=== PATIENT | male | born 1940 | race Caucasian/White ===

== ENCOUNTER 2021-11-09 13:49 | Inpatient (IN) | payer MEDICARE, OTHER ==
[~2021-11-09] VITALS: Ht 167.6 cm; Wt 88.6 kg
[2021-11-09 15:12] LABS: HEMOGLOBIN 11.6 gm/dl (14.0-17.5); RED BLOOD COUNT 3.67 M/UL (4.20-5.50)
[2021-11-09] MEDS ORDERED: TRAZODONE HCL50 MG PO (16:19)
[2021-11-09] MEDS ORDERED: LORAZEPAM0.5 MG PO (16:19)
[2021-11-09] MEDS ORDERED: CARVEDILOL25 MG PO (16:20)
[2021-11-09] MEDS ORDERED: BUMETANIDE2 MG PO (16:20)
[2021-11-09] MEDS ORDERED: HYDRALAZINE HCL50 MG PO (16:21)
[2021-11-09] MEDS ORDERED: PROAIR HFA8.5 GM INH (16:21)
[2021-11-09] MEDS ORDERED: AVIDOXY100 MG PO (16:22)
[2021-11-09] MEDS ORDERED: NITROGLYCERIN0.4 MG SL (16:22)
[2021-11-09] MEDS ORDERED: ELIQUIS 2.5 MG2.5 MG PO (16:23)
[2021-11-09] MEDS ORDERED: SEVELAMER HCL800 MG PO (18:37)
[2021-11-09] MEDS ORDERED: MODAFINIL200 MG PO (18:38)
[2021-11-10 03:56] LABS: HEMOGLOBIN 10.9 gm/dl (14.0-17.5); RED BLOOD COUNT 3.47 M/UL (4.20-5.50)
[2021-11-10 04:00] LABS: WHITE BLOOD COUNT 6.7 K/UL (4.5-11.0)
[2021-11-10] MEDS ORDERED: MIRCERA INJ (09:44)
--- NOTE | 2021-11-12 01:57 | NUR ---
PT REFUSES LABS STATES NEED TO DO LATER IN THE MORNING
[2021-11-12 09:30] LABS: HEMOGLOBIN 11.5 gm/dl (14.0-17.5); RED BLOOD COUNT 3.68 M/UL (4.20-5.50)
[2021-11-12 09:38] LABS: WHITE BLOOD COUNT 9.4 K/UL (4.5-11.0)
[2021-11-13 02:05] LABS: HEMOGLOBIN 11.5 gm/dl (14.0-17.5); RED BLOOD COUNT 3.68 M/UL (4.20-5.50); WHITE BLOOD COUNT 9.3 K/UL (4.5-11.0)
--- NOTE | 2021-11-13 05:41 | NUR ---
PT STATES HE IS TOO WEAK TO LIFT HIS HEAD TO PLACE PILLOW UNDER HIS HEAD, STATES HE WANTS TO GET UP AND WALK TO BATHROOM, EDUCATED PATIENT ON FALL RISK AND THAT IS HE IS THAT WEAK WE CAN PUT HIM ON BEDPAIN, PATIENT REQUESTED BARIATRIC PHYSICIAN, HOUSE @ BEDROOM, PT STATES HE HAS BEEN GETTING UP AND WALKING DURING THE DAY, BARIATRIC PHYSICIAN EDUCATED PATIENT, PATIENT INSISTS ON GETTING UP AND STATES HE WILL DO A BEDSIDE COMMODE, BARIATRIC PHYSICIAN ADVISED TO GET PATIENT UP TO BEDSIDE COMMODE
[2021-11-14 03:43] LABS: HEMOGLOBIN 10.9 gm/dl (14.0-17.5); RED BLOOD COUNT 3.5 M/UL (4.20-5.50); WHITE BLOOD COUNT 7.8 K/UL (4.5-11.0)
[2021-11-15 03:19] LABS: HEMOGLOBIN 10.9 gm/dl (14.0-17.5); RED BLOOD COUNT 3.49 M/UL (4.20-5.50)
[2021-11-15 03:28] LABS: WHITE BLOOD COUNT 9.9 K/UL (4.5-11.0)
[2021-11-15] MEDS ORDERED: ATORVASTATIN CA20 MG PO (16:05)
[2021-11-15] MEDS ORDERED: OMNICEF 300 MG300 MG PO (16:05)
[2021-11-15] MEDS ORDERED: POLYETHYLENE GL17 GM PO (16:05)
[2021-11-15] MEDS ORDERED: NIFEDIPINE ER30 M1 PO (16:05)
[2021-11-15] MEDS ORDERED: HYDRALAZINE HCL50 MG PO (16:05)
[2021-11-15] MEDS ORDERED: ASPIRIN EC81 MG PO (16:05)
[2021-11-15] MEDS ORDERED: PROTONIX 40 MG40 M1 PO (16:05)
[2021-11-15] MEDS ORDERED: BUDESONIDE0.5 MG/2 M NEB (16:05)
[2021-11-15] MEDS ORDERED: BENZONATATE100 MG PO (16:05)
[2021-11-15] MEDS ORDERED: HUMIBID LA TAB600 MG PO (16:05)
[2021-11-15] MEDS ORDERED: ISOSORBIDE MONO60 MG PO (16:05)
[2021-11-15] MEDS ORDERED: BROVANA15 MCG/2 M NEB (16:05)
--- NOTE | 2021-11-15 16:34 | NUR ---
ATTEMPTED TO CALL REPORT TO [facility]. THEY CANNOT TAKE PT TONIGHT DUE TO ADMISSION NURSE IS GONE FOR THE DAY. CAN TAKE HIM FIRST THINGTOMORROW.
[2021-11-16 03:48] LABS: HEMOGLOBIN 9.7 gm/dl (14.0-17.5); WHITE BLOOD COUNT 8.1 K/UL (4.5-11.0)
[2021-11-16 03:59] LABS: RED BLOOD COUNT 3.07 M/UL (4.20-5.50)
[2021-11-16] MEDS ORDERED: BUMETANIDE2 MG PO (13:37)
== END 2021-11-17 17:55 | DRG 193 ==
LOC: ER1 13:49 → CDU 15:04 → PROG CARE 15:04
PROVIDERS: Internal Medicine; Internal Medicine Nephrology; Physician Assistant; Preventive Medicine Occupational Medicine; ADMIT Internal Medicine
PROC: 5A1D70Z Performance of Urinary Filtration, Intermittent, Less than 6 Hours Per Day (ICD-10-PCS; 2021-11-09)
PROC: B24BZZZ Ultrasonography of Heart with Aorta (ICD-10-PCS; principal; 2021-11-11)
PROC: 5A1D70Z Performance of Urinary Filtration, Intermittent, Less than 6 Hours Per Day (ICD-10-PCS; 2021-11-11)
PROC: 5A1D70Z Performance of Urinary Filtration, Intermittent, Less than 6 Hours Per Day (ICD-10-PCS; 2021-11-13)
PROC: 5A1D70Z Performance of Urinary Filtration, Intermittent, Less than 6 Hours Per Day (ICD-10-PCS; 2021-11-17)
DX: J18.9 Pneumonia, unspecified organism (principal); J96.21 Acute and chronic respiratory failure with hypoxia; N18.6 End stage renal disease; I13.2 Hypertensive heart and chronic kidney disease with heart failure and with stage 5 chronic kidney disease, or end stage renal disease; J44.0 Chronic obstructive pulmonary disease with (acute) lower respiratory infection; E87.1 Hypo-osmolality and hyponatremia; I50.32 Chronic diastolic (congestive) heart failure; J44.1 Chronic obstructive pulmonary disease with (acute) exacerbation; I25.10 Atherosclerotic heart disease of native coronary artery without angina pectoris; E78.5 Hyperlipidemia, unspecified; I16.0 Hypertensive urgency; I48.0 Paroxysmal atrial fibrillation; F17.200 Nicotine dependence, unspecified, uncomplicated; I08.2 Rheumatic disorders of both aortic and tricuspid valves; L89.326 Pressure-induced deep tissue damage of left buttock; W01.0XXA Fall on same level from slipping, tripping and stumbling without subsequent striking against object, initial encounter; R27.0 Ataxia, unspecified; E87.5 Hyperkalemia; R53.81 Other malaise; G47.00 Insomnia, unspecified; Z99.2 Dependence on renal dialysis; Z95.5 Presence of coronary angioplasty implant and graft; Z90.89 Acquired absence of other organs; Z99.81 Dependence on supplemental oxygen; Z82.49 Family history of ischemic heart disease and other diseases of the circulatory system; Z79.01 Long term (current) use of anticoagulants; Z91.048 Other nonmedicinal substance allergy status; Z79.82 Long term (current) use of aspirin; Z86.73 Personal history of transient ischemic attack (TIA), and cerebral infarction without residual deficits; Z91.15 Patient's noncompliance with renal dialysis
CPT/HCPCS: ECHO; 0240U; 36415; 36600; 70450; 70551; 71045; 71046; 78452; 80048; 80053; 80202; 82009; 82550; 82553; 82728; 82803; 83540; 83550; 83690; 83735; 83874; 83880; 84100; 84439; 84443; 84484; 85025; 85027; 85652; 86140; 90935; 90937; 93005; 93017; 93306; 94640; 94664; 94760; 97110; 97116; 97116-GP-CQ; 97161; 97166; 99285; A9502; G0257; J0360; J0692; J2185; J2785; J3370; J7070; P9047; U0002